=== PATIENT | female | born 1950 | race African-American/Black ===

== ENCOUNTER 2021-03-10 04:13 | Inpatient (IN) | payer OTHER ==
[~2021-03-10] VITALS: Ht 170.2 cm; Wt 91.2 kg
[2021-03-10] MEDS ORDERED: DEXTROSE 50% WATER 50ML SYRINGE IV ONE (04:30)
[2021-03-10 05:22] LABS: BASOPHILS % 1.3 % (0.0-2.0); EOSINOPHILS % 2.9 % (0.0-5.0); HEMATOCRIT. 23.9 % (36.0-48.0); HEMOGLOBIN. 7.7 g/dL (12.0-16.0); LYMPHOCYTES % 16.7 % (20.0-50.0); MEAN CORPUSCULAR HEMOGLOBIN 28.7 pg (28.0-32.0); MEAN CORPUSCULAR VOLUME 88.8 fL (81.0-99.0); MEAN PLATELET VOLUME 7.3 fl (7.4-10.4); MONOCYTES % 5.4 % (2.0-8.0); NEUTROPHILS % 73.7 % (40.0-76.0); PLATELET 118 x1000/uL (130-400); RED BLOOD CELL COUNT 2.69 mill/uL (4.2-5.4); RED CELL DISTRIBUTION WIDTH 19.4 % (11.6-14.6)
[2021-03-10 05:29] LABS: CHLORIDE 106 mEq/L (98-107)
[2021-03-10 05:34] LABS: INR 1.1; PROTHROMBIN TIME 11.4 sec (9.6-11.0)
[2021-03-10 05:35] LABS: ETHANOL BLOOD < 10 mg/dL
[2021-03-10 05:37] LABS: LDL CHOLESTEROL 39 mg/dL (5-100)
[2021-03-10 05:48] LABS: CLARITY URINE CLEAR (CLEAR); COLOR URINE YELLOW (YELLOW); KETONES URINE NEGATIVE (NEGATIVE); LEUKOCYTE ESTERASE URINE TRACE (NEGATIVE); NITRITE URINE NEGATIVE (NEGATIVE); OCCULT BLOOD URINE NEGATIVE (NEGATIVE); PH URINE 5.5 (4.5-8.0); PROTEIN URINE 2+ (NEGATIVE); SPECIFIC GRAVITY URINE 1.015 (1.005-1.030)
[2021-03-10 06:06] LABS: *AMPHETAMINES SCREEN URINE NEGATIVE (NEGATIVE); *BARBITURATES SCREEN URINE NEGATIVE (NEGATIVE); *BENZODIAZEPINES SCREEN URINE NEGATIVE (NEGATIVE); *COCAINE SCREEN URINE NEGATIVE (NEGATIVE); METHADONE URINE SCREEN NEGATIVE (NEGATIVE)
[2021-03-10 06:07] LABS: CANNABINOID URINE SCREEN NEGATIVE (NEGATIVE); OPIATES URINE SCREEN NEGATIVE (NEGATIVE); PHENCYCLIDINE URINE SCREEN NEGATIVE (NEGATIVE)
[2021-03-10] MEDS ORDERED: IOHEXOL-350 100 ML BOTTLE ONE (06:21)
[2021-03-10] MEDS ORDERED: VISCOUS LIDOCAINE 2% 15 ML UDC MM STA (06:24)
[2021-03-10] MEDS ORDERED: CEFTRIAXONE 2 G PREMIX 50 ML IV ONE (06:30)
[2021-03-10] MEDS ORDERED: ASPIRIN 325MG EC TABLET PO ONE (06:30)
[2021-03-10] MEDS ORDERED: DEXT 5%/0.9% NACL 1,000 ML IV ONE (06:30)
[2021-03-10] MEDS ORDERED: DEXT 5%/0.9% NACL 1,000 ML IV SCH (07:00)
[2021-03-10] MEDS ORDERED: AZITHROMYCIN 500 MG TABLET PO ONE (08:15)
[2021-03-10 11:00] VITALS: BP 162/73
[2021-03-10 11:53] VITALS: BP 170/78
[2021-03-10] MEDS ORDERED: LORAZEPAM 0.5MG TABLET PO PRN (12:30)
[2021-03-10] MEDS ORDERED: ONDANSETRON HCL 4MG/2ML INJ IV PRN (12:30)
[2021-03-10] MEDS ORDERED: CLONIDINE 0.1MG TABLET PO PRN (12:30)
[2021-03-10] MEDS ORDERED: IPRATROPIUM/ALBUTEROL 0.5-3(2.5)MG/3ML NEB HHN PRN (12:30)
[2021-03-10] MEDS ORDERED: ACETAMINOPHEN 325MG TABLET PO PRN ×2 (12:30)
[2021-03-10] MEDS ORDERED: cholecalciferol PO (12:41)
[2021-03-10] MEDS ORDERED: AMLO10TA80 MT (12:41)
[2021-03-10] MEDS ORDERED: GLIP-191 MT (12:41)
[2021-03-10] MEDS ORDERED: NEPVIT MT (12:41)
[2021-03-10] MEDS ORDERED: HYDR12.54 MT (12:41)
[2021-03-10] MEDS ORDERED: HYDR-4135 PO (12:41)
[2021-03-10] MEDS ORDERED: FERR324T22 MT (12:41)
[2021-03-10] MEDS ORDERED: HYDR-4135 MT (12:43)
[2021-03-10] MEDS ORDERED: DIF15 PO (12:47)
[2021-03-10] MEDS ORDERED: nystatin PO (13:02)
[2021-03-10] MEDS ORDERED: HYDR200T80 PO (14:12)
[2021-03-10] MEDS ORDERED: NON FORMULARY PATIENT HOME MED SSW PRN (14:15)
[2021-03-10] MEDS ORDERED: LIDOCAINE HCL 1% 20ML VIAL (Pyxis) INJ ONE (14:25)
[2021-03-10 14:27] VITALS: BP 148/84
[2021-03-10] MEDS: HYDROCODONE/ACETAMINOPHEN 5/325MG TABLET PO PRN (14:29)
[2021-03-10] MEDS ORDERED: OMEP20TA15 MT (14:32)
[2021-03-10] MEDS ORDERED: OMEP20TA15 PO (14:32)
[2021-03-10] MEDS: HYDROXYCHLOROQUINE SULFATE 200MG TABLET PO SCH (15:00)
[2021-03-10] MEDS: HYDRALAZINE HCL 50MG TABLET PO SCH ×2 (15:14→21:23)
[2021-03-10] MEDS: AMLODIPINE 10MG TABLET PO SCH (15:14)
[2021-03-10 18:17] VITALS: BP 143/75
[2021-03-10] MEDS: SODIUM CHLORIDE 0.9% 1,000 ML IV SCH (18:25)
[2021-03-10] MEDS ORDERED: DEXTROSE 50% WATER 50ML SYRINGE IV PRN (18:30)
[2021-03-10 19:31] LABS: T4 FREE 1.24 ng/dL (0.76-1.46)
[2021-03-10] MEDS ORDERED: NPH,100I SQ (19:37)
[2021-03-10] MEDS ORDERED: NPH,100V SQ (19:37)
[2021-03-10 19:41] LABS: FOLIC ACID (FOLATE) SERUM >20 ng/mL ng/mL (>5.38)
[2021-03-10 19:42] VITALS: BP 163/75
[2021-03-10 19:46] LABS: HEPATITIS B SURFACE ANTIGEN NEGATIVE
[2021-03-10 19:52] LABS: VITAMIN B12 SERUM 683 pg/mL (211-911)
[2021-03-10] MEDS: MICAFUNGIN 150 MG in SODIUM CHLORIDE 0.9% 100 ML IV SCH (20:46)
[2021-03-10] MEDS: INSULIN LISPRO 100 UNITS/ML SUBCUT SCH (21:00)
[2021-03-10] MEDS: BLOOD SUGAR DIAGNOSTIC STRIP TEST SCH (21:09)
[2021-03-10] MEDS: [UNRECOGNIZED DRUG - REMARK] SSP PRN (21:33)
[2021-03-10 22:16] VITALS: BP 142/73
[2021-03-11] VITALS (12 sets, daily range): BP systolic 139–165; BP diastolic 56–96
[2021-03-11] MEDS: SODIUM CHLORIDE 0.9% 1,000 ML IV SCH ×3 (00:48→23:53)
[2021-03-11] MEDS: HYDRALAZINE HCL 50MG TABLET PO SCH ×3 (05:08→21:23)
[2021-03-11] MEDS: [UNRECOGNIZED DRUG - REMARK] SSP PRN (05:15)
[2021-03-11] MEDS: BLOOD SUGAR DIAGNOSTIC STRIP TEST SCH ×4 (06:05→21:18)
[2021-03-11] MEDS: OMEPRAZOLE 20MG CAPSULE EXTENDED RELEASE PO SCH (06:17)
[2021-03-11] MEDS ORDERED: MEDICATION NOT ON FORMULARY EA (Omeprazole Magnesium (Prilosec Otc) 20 MG) PO SCH (06:50)
[2021-03-11] MEDS: INSULIN LISPRO 100 UNITS/ML SUBCUT SCH ×4 (07:59→21:24)
[2021-03-11 08:31] LABS: BASOPHILS % 1.4 % (0.0-2.0); HEMATOCRIT. 25.3 % (36.0-48.0); HEMOGLOBIN. 8.1 g/dL (12.0-16.0); LYMPHOCYTES % 22.4 % (20.0-50.0); MEAN CORPUSCULAR HEMOGLOBIN 28.9 pg (28.0-32.0); MEAN CORPUSCULAR VOLUME 90.1 fL (81.0-99.0); MEAN PLATELET VOLUME 8.3 fl (7.4-10.4); MONOCYTES % 10.4 % (2.0-8.0); NEUTROPHILS % 58.8 % (40.0-76.0); PLATELET 119 x1000/uL (130-400); RED BLOOD CELL COUNT 2.81 mill/uL (4.2-5.4); RED CELL DISTRIBUTION WIDTH 19.3 % (11.6-14.6)
[2021-03-11 08:35] LABS: CHLORIDE 108 mEq/L (98-107)
[2021-03-11 08:40] LABS: PHOSPHORUS 2.6 mg/dL (2.5-4.9)
[2021-03-11 08:43] LABS: CREATINE KINASE 28 IU/L (26-192)
[2021-03-11] MEDS: AMLODIPINE 10MG TABLET PO SCH (08:49)
[2021-03-11] MEDS: HYDROXYCHLOROQUINE SULFATE 200MG TABLET PO SCH (08:49)
[2021-03-11] MEDS: MULTIVITAMINS,THER W-MINERALS TABLET PO SCH (12:45)
[2021-03-11] MEDS ORDERED: MAGNESIUM 4 G PREMIX 100 ML IV NR (13:30)
[2021-03-11] MEDS ORDERED: MAGNESIUM 2 G PREMIX 50 ML IV NR (17:30)
[2021-03-11] MEDS: MICAFUNGIN 150 MG in SODIUM CHLORIDE 0.9% 100 ML IV SCH (19:59)
[2021-03-11] MEDS: METOPROLOL TARTRATE 25MG TABLET PO SCH (21:23)
[2021-03-12] VITALS (9 sets, daily range): BP systolic 132–155; BP diastolic 51–75
[2021-03-12] MEDS: BLOOD SUGAR DIAGNOSTIC STRIP TEST SCH ×4 (06:14→21:00)
[2021-03-12] MEDS: OMEPRAZOLE 20MG CAPSULE EXTENDED RELEASE PO SCH (06:22)
[2021-03-12] MEDS: HYDRALAZINE HCL 100MG TABLET PO SCH ×3 (06:25→23:22)
[2021-03-12 06:46] LABS: HEMATOCRIT. 25.1 % (36.0-48.0); HEMOGLOBIN. 7.9 g/dL (12.0-16.0); MEAN CORPUSCULAR HEMOGLOBIN 28.2 pg (28.0-32.0); MEAN CORPUSCULAR VOLUME 89.7 fL (81.0-99.0); MEAN PLATELET VOLUME 7.8 fl (7.4-10.4); PLATELET 146 x1000/uL (130-400); RED BLOOD CELL COUNT 2.79 mill/uL (4.2-5.4); RED CELL DISTRIBUTION WIDTH 19.6 % (11.6-14.6)
[2021-03-12 07:20] LABS: CHLORIDE 110 mEq/L (98-107)
[2021-03-12 07:26] LABS: PHOSPHORUS 2.7 mg/dL (2.5-4.9)
[2021-03-12] MEDS ORDERED: HYDRALAZINE HCL 50MG TABLET PO SCH (08:00)
[2021-03-12] MEDS: INSULIN LISPRO 100 UNITS/ML SUBCUT SCH ×4 (08:03→22:11)
[2021-03-12] MEDS: MULTIVITAMINS,THER W-MINERALS TABLET PO SCH (08:04)
[2021-03-12] MEDS: METOPROLOL TARTRATE 25MG TABLET PO SCH ×2 (08:06→22:04)
[2021-03-12] MEDS: AMLODIPINE 10MG TABLET PO SCH (08:07)
[2021-03-12] MEDS: HYDROXYCHLOROQUINE SULFATE 200MG TABLET PO SCH ×2 (08:07→08:10)
[2021-03-12] MEDS ORDERED: POTASSIUM CHLORIDE 20MEQ TABLET SR PO SCH (08:15)
[2021-03-12] MEDS: SODIUM CHLORIDE 0.9% 1,000 ML IV SCH ×2 (10:28→22:13)
[2021-03-12] MEDS: DOCUSATE SODIUM 100MG CAPSULE PO PRN (11:53)
[2021-03-12] MEDS: HYDROCODONE/ACETAMINOPHEN 5/325MG TABLET PO PRN ×2 (11:58→22:05)
[2021-03-12] MEDS: MICAFUNGIN 150 MG in SODIUM CHLORIDE 0.9% 100 ML IV SCH (22:04)
[2021-03-13] VITALS (8 sets, daily range): BP systolic 135–168; BP diastolic 45–72
[2021-03-13 01:58] LABS: NUCLEATED RED BLOOD CELLS 1 /100 WBC; PLATELET ESTIMATE NORMAL
[2021-03-13 05:48] LABS: HEMOGLOBIN. 8.6 g/dL (12.0-16.0); MEAN CORPUSCULAR HEMOGLOBIN 28.4 pg (28.0-32.0); MEAN CORPUSCULAR VOLUME 89.5 fL (81.0-99.0); MEAN PLATELET VOLUME 8.8 fl (7.4-10.4); PLATELET 260 x1000/uL (130-400); RED BLOOD CELL COUNT 3.01 mill/uL (4.2-5.4); RED CELL DISTRIBUTION WIDTH 19.3 % (11.6-14.6)
[2021-03-13 06:24] LABS: PHOSPHORUS 2.6 mg/dL (2.5-4.9)
[2021-03-13] MEDS: HYDRALAZINE HCL 100MG TABLET PO SCH ×3 (06:38→22:14)
[2021-03-13] MEDS: OMEPRAZOLE 20MG CAPSULE EXTENDED RELEASE PO SCH (06:38)
[2021-03-13] MEDS: BLOOD SUGAR DIAGNOSTIC STRIP TEST SCH ×4 (06:43→21:00)
[2021-03-13] MEDS: SODIUM CHLORIDE 0.9% 1,000 ML IV SCH (08:42)
[2021-03-13] MEDS: INSULIN LISPRO 100 UNITS/ML SUBCUT SCH ×4 (12:20→22:16)
[2021-03-13] MEDS: METOPROLOL TARTRATE 25MG TABLET PO SCH ×2 (12:35→22:14)
[2021-03-13] MEDS: HYDROXYCHLOROQUINE SULFATE 200MG TABLET PO SCH (12:36)
[2021-03-13] MEDS: MULTIVITAMINS,THER W-MINERALS TABLET PO SCH (12:36)
[2021-03-13] MEDS: AMLODIPINE 10MG TABLET PO SCH (12:36)
[2021-03-13] MEDS: DOCUSATE SODIUM 100MG CAPSULE PO PRN (12:37)
[2021-03-13 13:41] LABS: PLATELET ESTIMATE NORMAL
[2021-03-13] MEDS: HYDROCODONE/ACETAMINOPHEN 5/325MG TABLET PO PRN (15:59)
[2021-03-13] MEDS: [UNRECOGNIZED DRUG - REMARK] SSP PRN (16:00)
[2021-03-13] MEDS: MICAFUNGIN 150 MG in SODIUM CHLORIDE 0.9% 100 ML IV SCH (22:18)
[2021-03-14 13:09] LABS: MICROALBUMIN URINE 371.4 ug/mL (Not Estab.)
[2021-03-14 13:09] LABS: ANA IFA Negative (.)
== END 2021-03-13 22:55 | disposition short-term general hospital (02) | DRG 91 ==
LOC: ER 04:13 → 3WST 08:02 → EDBEDREQ 08:39 → ENRESERV 08:40 → 6WST 03-12 08:38
PROVIDERS: ADMIT Internal Medicine; ATTEND Internal Medicine
PROC: 02HV33Z Insertion of Infusion Device into Superior Vena Cava, Percutaneous Approach (ICD-10-PCS; principal; 2021-03-10)
PROC: B548ZZA Ultrasonography of Superior Vena Cava, Guidance (ICD-10-PCS; 2021-03-10)
DX: G92 Toxic encephalopathy (principal); E43 Unspecified severe protein-calorie malnutrition; D61.818 Other pancytopenia; E11.22 Type 2 diabetes mellitus with diabetic chronic kidney disease; E11.649 Type 2 diabetes mellitus with hypoglycemia without coma; E83.42 Hypomagnesemia; I12.9 Hypertensive chronic kidney disease with stage 1 through stage 4 chronic kidney disease, or unspecified chronic kidney disease; N18.30 Chronic kidney disease, stage 3 unspecified; J43.2 Centrilobular emphysema; K76.0 Fatty (change of) liver, not elsewhere classified; R00.0 Tachycardia, unspecified; R74.01 Elevation of levels of liver transaminase levels; R47.1 Dysarthria and anarthria; Z20.822 Contact with and (suspected) exposure to COVID-19; K12.1 Other forms of stomatitis; E87.6 Hypokalemia; R13.11 Dysphagia, oral phase; Z79.4 Long term (current) use of insulin; Z86.73 Personal history of transient ischemic attack (TIA), and cerebral infarction without residual deficits; Z68.31 Body mass index [BMI] 31.0-31.9, adult; Z82.49 Family history of ischemic heart disease and other diseases of the circulatory system; M06.9 Rheumatoid arthritis, unspecified; L89.159 Pressure ulcer of sacral region, unspecified stage
CPT/HCPCS: 36415; 36573; 70496; 70498; 70551; 71045; 76700; 80048; 80053; 80061; 80076; 80305; 80320; 81003; 82043; 82248; 82550; 82607; 82728; 82746; 82962; 83036; 83540; 83550; 83721; 83735; 83880; 84100; 84134; 84145; 84439; 84443; 84481; 84484; 85025; 85651; 86140; 86160; 86256; 86705; 86709; 86803; 87340; 87426; 92610; 93005; 93306; 93970; 97162; 97166; 99291; C1725; J0696; J1815; J2248; J3475; J3490; J7030; J7042; J7050; Q9967; G0480